=== PATIENT | female | born 1990 | race Caucasian/White ===

== ENCOUNTER 2021-11-25 14:39 | Emergency (ER) | payer OTHER ==
[~2021-11-25] VITALS: Ht 162.6 cm; Wt 77.1 kg
[2021-11-25] MEDS ORDERED: CYMBALTA30 MG PO (15:33)
== END 2021-11-25 17:40 | disposition home or self-care (01) ==
LOC: ED 14:39
DX: S09.90XA Unspecified injury of head, initial encounter (principal); R06.4 Hyperventilation; W06.XXXA Fall from bed, initial encounter; Z79.899 Other long term (current) drug therapy
CPT/HCPCS: 36415; 80053; 83735; 85025; 96374; 99284-25; J2405; J7030